=== PATIENT | male | born 1995 | race Caucasian/White ===

== ENCOUNTER → 2018-12-27 06:35 | Outpatient (CLI) | payer OTHER, SELFPAY ==
--- NOTE | 2018-12-27 | DI.MRI.S_ITS ---
PROCEDURE: MR BRAIN (IAC) WWO CON INDICATIONS: Tinnitus, unspecified ear TECHNIQUE: Noncontrast sagittal T1 spin echo, axial FLAIR, axial gradient echo, axial diffusion and ADC through the brain. Axial thin-slice 3D CISS, coronal TruFISP, axial T1 spin echo with fat saturation through the internal auditory canals. After the administration of contrast, thin slice axial and coronal T1 spin echo with fat saturation through the internal auditory canals, and axial T1 spin echo with fat saturation through the brain. COMPARISON: None. FINDINGS: Image quality: Excellent. Cerebellopontine angles: No cerebellopontine angle masses. Inner ear structures appear normally formed. No suspicious enhancement in the internal auditory canal or along the course of the 7th cranial nerve. CSF spaces: Large extra-axial cystic appearing lesion involving the left middle cranial fossa, extending to the left cavernous sinus. Left cavernous sinus flow void appears intact. It measures 5.7 x 5.2 cm on axial image 51 series 7. Associated partial effacement of the left lateral recess. No midline shift Basal cisterns are patent. Brain: No intracranial bleeds or mass effects. Doyle-white matter interface is intact. No suspicious intracranial enhancement. Diffusion weighted images demonstrate no acute ischemic insults. Brainstem appears normal. Normal intravascular flow voids are present. Skull and face: Calvarial marrow signal is normal. Orbits appear normal. Sinuses: Sinuses and mastoids are clear. IMPRESSION: Large left middle cranial fossa presumed arachnoid cyst, with associated partial effacement of the left lateral ventricle. This finding probably chronic although comparison with prior studies would be helpful. No suspicious enhancement. No discrete IAC or cerebellopontine angle mass. Dictated by: Jose Armando Parkinson M.D. on 12/27/2018 at 8:40 Approved by: Jose Armando Parkinson M.D. on 12/27/2018 at 8:48
== END ==
PROVIDERS: Visit Provider General Practice
DX: H93.19 Tinnitus, unspecified ear (principal)
CPT/HCPCS: 70553